=== PATIENT | female | born 1980 | race Caucasian/White ===

== ENCOUNTER 2017-08-25 08:24 | Emergency (ER) | payer BC ==
[2017-08-25 08:53] VITALS: BP 144/72
--- NOTE | 2017-08-25 09:10 | UC ---
Complaint Female HPI - HPI Summary HPI Summary: urinary frequency x 5 days no dysuria, no fever, no chills, no flank pain - History Of Current Complaint Chief Complaint: UCGU Stated Complaint: URINARY COMPLAINT Time Seen by Provider: 08/25/17 08:47 Hx Obtained From: Patient Hx Last Menstrual Period: 08/06/17 ?: No Onset/Duration: Gradual Onset, Lasting Days - 5, Still Present Timing: Constant, Lasting Days - 5 Severity Initially: Moderate Severity Currently: Moderate Pain Intensity: 0 Aggravating Factor(s): Urination Associated Signs And Symptoms: Negative: Fever, Back Pain, Vaginal Bleeding/ Discharge, Vaginal Discharge, Nausea, Vomiting(# Of Episodes =), Genital Swelling, Genital Blisters - Allergies/Home Medications Allergies/Adverse Reactions: Allergies Allergy/AdvReac Type Severity Reaction Status Date / Time No Known Allergies Allergy Verified 08/25/17 08:52 PMH/Surg Hx/FS Hx/Imm Hx Previously Healthy: Yes - Surgical History Surgical History: None - Family History Known Family History: Negative: Diabetes - Social History Alcohol Use: None Substance Use Type: None Smoking Status (MU): Never Smoked Tobacco Review of Systems Constitutional: Negative Skin: Negative Eyes: Negative ENT: Negative Respiratory: Negative Cardiovascular: Negative Genitourinary: Frequency Is Patient Immunocompromised?: No All Other Systems Reviewed And Are Negative: Yes Physical Exam Triage Information Reviewed: Yes Appearance: Well-Appearing, No Pain Distress, Well-Nourished Vital Signs: Initial Vital Signs Temp 98.1 F 08/25/17 08:49 Pulse 52 08/25/17 08:49 Resp 16 08/25/17 08:49 BP 144/72 08/25/17 08:49 Pulse Ox 99 08/25/17 08:49 Vital Signs Reviewed: Yes Eyes: Positive: Conjunctiva Clear ENT: Positive: Normal ENT inspection, Hearing grossly normal, Pharynx normal Neck exam: Normal Neck: Positive: Supple, Nontender Respiratory: Positive: Chest non-tender, Lungs clear, Normal breath sounds Cardiovascular: Positive: RRR, No Murmur, Pulses Normal Abdominal Exam: Normal Abdomen Description: Positive: Nontender, Soft. Negative: CVA Tenderness (R), CVA Tenderness (L), Distended, Guarding Bowel Sounds: Positive: Present Skin Exam: Normal Complaint Female Dx - Differential Dx/Diagnosis Provider Diagnoses: UTI Discharge - Discharge Plan Condition: Stable Disposition: HOME Prescriptions: Sulfamethox/Trimethoprim DS* [Bactrim DS 800/160 TAB*] 1 tab PO BID #10 tab Patient Education Materials: Urinary Tract Infection in Women (DC) Referrals: No Primary Care Phys,NOPCP [Primary Care Provider] - If Needed
== END 2017-08-25 09:08 | disposition home or self-care (01) ==
LOC: UCCORT 08:24
DX: N39.0 Urinary tract infection, site not specified (principal); B96.20 Unspecified Escherichia coli [E. coli] as the cause of diseases classified elsewhere
CPT/HCPCS: 81003; 87077; 87086; 87186; 99212; G0463

== ENCOUNTER 2019-06-03 12:35 | Emergency (ER) | payer BC ==
[2019-06-03 13:15] VITALS: BP 148/92
--- NOTE | 2019-06-03 14:00 | UC ---
General HPI - HPI Summary HPI Summary: 38 yo female c/o apprx 4 days L maxillary sinus area pain. Hurts both day and night, worse at night. Pain extends to upper L maxillary region. Feels swollen. Minimal cough. No vis / aud changes. - History of Current Complaint Chief Complaint: UCHeadache Stated Complaint: SINUS INFECTION Time Seen by Provider: 06/03/19 13:58 Hx Obtained From: Patient Hx Last Menstrual Period: ~05/13/19 Pain Intensity: 9 - Allergy/Home Medications Allergies/Adverse Reactions: Allergies Allergy/AdvReac Type Severity Reaction Status Date / Time No Known Allergies Allergy Verified 06/03/19 13:11 Home Medications: Home Medications Control Pill 1 tab PO DAILY 06/03/19 [History] Guaifen/Phenyleph/Acetaminophn [Tylenol Sinus Severe Caplet] 2 each PO Q6H PRN 06/03/19 [History Confirmed 06/03/19] PMH/Surg Hx/FS Hx/Imm Hx Previously Healthy: Yes - Surgical History Surgical History: None - Family History Known Family History: Negative: Diabetes - Social History Alcohol Use: None Substance Use Type: None Smoking Status (MU): Never Smoked Tobacco Review of Systems All Other Systems Reviewed And Are Negative: Yes Constitutional: Positive: Negative Skin: Positive: Negative Eyes: Positive: Negative ENT: Positive: Nasal Discharge, Sinus Congestion Respiratory: Positive: Negative Cardiovascular: Positive: Negative Gastrointestinal: Positive: Negative Genitourinary: Positive: Negative Motor: Positive: Negative Neurovascular: Positive: Negative Musculoskeletal: Positive: Negative Neurological: Positive: Negative Psychological: Positive: Negative Is Patient Immunocompromised?: No Physical Exam Triage Information Reviewed: Yes Appearance: Well-Nourished Vital Signs: Initial Vital Signs Temp 97.6 F 06/03/19 13:09 Pulse 75 06/03/19 13:09 Resp 16 06/03/19 13:09 BP 148/92 06/03/19 13:09 Pulse Ox 100 06/03/19 13:09 Vital Signs Reviewed: Yes Eye Exam: Normal ENT: Positive: Pharynx normal, TM dull, Other Neck exam: Normal Respiratory Exam: Normal Respiratory: Positive: Chest non-tender Cardiovascular Exam: Normal Cardiovascular: Positive: RRR Abdominal Exam: Normal Abdomen Description: Positive: Nontender Musculoskeletal Exam: Normal Neurological Exam: Normal Psychological Exam: Normal Skin Exam: Normal Course/Dx - Course Course Of Treatment: 148/92 bp REviewed coa / tx plan. Questions as posed answered to the best of my ability. - Diagnoses Provider Diagnosis: Acute sinusitis Discharge ED - Sign-Out/Discharge Documenting (check all that apply): Patient Departure All imaging exams completed and their final reports reviewed: No Studies - Discharge Plan Condition: Stable Disposition: HOME Prescriptions: Amoxicillin/Clavulanate TAB* [Augmentin TAB 875*] 875 mg PO BID #20 tab Ibuprofen TAB* [Motrin TAB* 600 MG] 600 mg PO Q8H PRN #30 tab PRN Reason: Pain Patient Education Materials: Sinusitis (ED) Forms: *Work Release Referrals: No Primary Care Phys,NOPCP [Primary Care Provider] - Additional Instructions: Hydrate. Seek medical attention for worse or new problems. - Billing Disposition and Condition Condition: STABLE Disposition: Home
== END 2019-06-03 14:33 | disposition home or self-care (01) ==
LOC: UCCORT 12:35
DX: J01.90 Acute sinusitis, unspecified (principal)
CPT/HCPCS: 99212; G0463